=== PATIENT | male | born 1990 | race African-American/Black ===

== ENCOUNTER 2017-05-16 16:05 | Emergency (ER) | payer SELFPAY ==
[~2017-05-16] VITALS: Ht 177.8 cm; Wt 80.0 kg
[2017-05-16 16:13] VITALS: BP 128/93
== END 2017-05-16 20:15 | disposition left against medical advice (07) ==
LOC: ER 16:05
DX: Z53.21 Procedure and treatment not carried out due to patient leaving prior to being seen by health care provider (principal)